=== PATIENT | male | born 1985 | race Caucasian/White ===

== ENCOUNTER 2023-09-26 14:20 | Emergency (ER) | payer MEDICAID ==
[~2023-09-26] VITALS: Ht 170.2 cm; Wt 72.3 kg
[2023-09-26] MEDS ORDERED: ibuprofen tablet 400 MG TABLET PO ONE (17:00)
[2023-09-26] MEDS ORDERED: IBUP-1984 PO (17:04)
[2023-09-26] MEDS ORDERED: HYDR-3965 PO (17:04)
[2023-09-26 18:00] VITALS: BP 124/84; PULSE 96; RESP 18; TEMP 97.8; O2SAT 99
== END 2023-09-26 18:03 | disposition home or self-care (01) ==
LOC: ER 14:20
DX: S62.617A Displaced fracture of proximal phalanx of left little finger, initial encounter for closed fracture (principal); W18.39XA Other fall on same level, initial encounter; Y93.89 Activity, other specified; Y92.89 Other specified places as the place of occurrence of the external cause; Y99.8 Other external cause status
CPT/HCPCS: 29125; 73130; 99283; A6446; A6449